=== PATIENT | male | born 1970 | race Caucasian/White ===

== ENCOUNTER 2018-06-06 09:11 | Inpatient (IN) | payer OTHER ==
[~2018-06-06] VITALS: Ht 152.4 cm; Wt 125.5 kg
[2018-06-06] MEDS: RINGERS SOLUTION,LACTATED 1,000 ML IV SCH ×2 (07:00→21:02)
[~2018-06-06 09:11] MED LIST: CeFAZolin 2 GM/DEXTROSE 50 ML IV ONE; MULT1CAP32 PO; NAPR-58 PO; OMEP20 PO; PROPOFOL 1000 MG/ISO-OSM 200 ML IV ONE; RINGERS SOLUTION,LACTATED 1,000 ML IV ONE
[2018-06-06] MEDS ORDERED: BACITRACIN 50,000 UNITS/VIAL ONE (10:04)
[2018-06-06] MEDS ORDERED: THROMBIN, BOVINE 20000 UNITS/VIAL POWDER TP ONE (10:05)
[2018-06-06] MEDS ORDERED: SODIUM CHLORIDE 0.9% 100 ML ONE (10:05)
[2018-06-06] MEDS ORDERED: RINGERS SOLUTION,LACTATED 1,000 ML IV ONE ×2 (10:05→13:30)
[2018-06-06] MEDS ORDERED: GELATIN SPONGE,ABSORBABLE 100 MM TP ONE (10:05)
[2018-06-06] MEDS ORDERED: GELATIN SPONGE,ABSORBABLE 50 MM TP ONE (10:11)
[2018-06-06] MEDS ORDERED: LIDOCAINE 0.5% 50 ML VIAL ONE (10:21)
[2018-06-06] MEDS ORDERED: KETAMINE HCL 50 MG/ML 10 ML VIAL IVP ONE (12:00)
[2018-06-06] MEDS ORDERED: EPHEDrine SULFATE 50 MG/ML VIAL IM ONE (12:00)
[2018-06-06] MEDS ORDERED: 0.9% SODIUM CHLORIDE 10 ML VIAL IVP ONE (12:00)
[2018-06-06] MEDS ORDERED: NEOSTIGMINE METHYLSULFATE 1 MG/ML 10 ML VIAL IVP ONE (12:00)
[2018-06-06] MEDS ORDERED: ROCURONIUM BROMIDE 10 MG/ML 5 ML VIAL IVP ONE (12:00)
[2018-06-06] MEDS ORDERED: ONDANSETRON HCL 4 MG/2 ML VIAL IVP ONE (12:00)
[2018-06-06] MEDS ORDERED: SUCCINYLCHOLINE CHLORIDE 20 MG/ML 10 ML VIAL IVP ONE (12:00)
[2018-06-06] MEDS ORDERED: MIDAZOLAM HCL 2 MG/2 ML VIAL IVP ONE (12:00)
[2018-06-06] MEDS ORDERED: GLYCOPYRROLATE 0.2 MG/ML VIAL IM ONE (12:00)
[2018-06-06] MEDS ORDERED: HYDROmorphone 2 MG/ML SYRINGE IVP ONE (12:00)
[2018-06-06] MEDS ORDERED: LIDOCAINE/PF 2% 5 ML VIAL INJ ONE (12:00)
[2018-06-06] MEDS ORDERED: PROPOFOL 1% 20 ML VIAL IVP ONE (12:00)
[2018-06-06] MEDS ORDERED: FentaNYL CITRATE-PF 250 MCG/5 ML VIAL IVP ONE (12:00)
[2018-06-06] MEDS ORDERED: DEXAMETHASONE SOD PHOS 4 MG/ML VIAL IVP ONE (12:00)
[2018-06-06] MEDS ORDERED: GUM MASTIC/STORAX/MSAL/ALCOHOL LIQUID 0.67 ML VIAL TP ONE (12:47)
[2018-06-06] MEDS ORDERED: BACITRACIN 28.4 GM OINTMENT TP ONE (12:49)
[2018-06-06] MEDS ORDERED: BUPIVACAINE HCL 0.5% 50 ML VIAL ONE (12:51)
[2018-06-06] MEDS ORDERED: HYDROmorphone 2 MG/ML SYRINGE IVP PRN (13:15)
[2018-06-06] MEDS ORDERED: ACETAMINOPHEN 325 MG TABLET PO PRN (13:15)
[2018-06-06] MEDS ORDERED: OxyCODONE HCL/ACETAMINOPHEN 5-325 MG TABLET PO PRN (13:15)
[2018-06-06] MEDS ORDERED: DiphenhydrAMINE HCL 50 MG/ML VIAL IVP PRN (13:15)
[2018-06-06] MEDS ORDERED: ZOLPIDEM TARTRATE 10 MG TABLET PO PRN (13:15)
[2018-06-06] MEDS: CeFAZolin 1 GM/DEXTROSE 50 ML IV SCH ×2 (13:15→21:03)
[2018-06-06 14:44] VITALS: BP 136/78
[2018-06-06 16:33] VITALS: BP 134/76
[2018-06-06] MEDS: OXYGEN THERAPY IH SCH (21:02)
[2018-06-06] MEDS: DOCUSATE SODIUM 100 MG CAPSULE PO SCH (21:03)
[2018-06-06 21:10] VITALS: BP 111/65
[2018-06-07 00:43] VITALS: BP 100/61
[2018-06-07 05:27] VITALS: BP 107/69
[2018-06-07 06:20] LABS: BASOPHILS % (AUTO) 0.1 % (0.0-2.0); EOSINOPHILS % (AUTO) 0 % (1.0-6.0); HEMATOCRIT 42.8 % (41-53); HEMOGLOBIN 14.8 g/dL (13.5-17.5); LYMPHOCYTES # (AUTO) 1.1 K/uL (1.0-4.8); LYMPHOCYTES % (AUTO) 9.6 % (22.0-44.0); MEAN CORPUSCULAR HEMOGLOBIN 30.7 pg (26.0-34.0); MEAN CORPUSCULAR HGB CONC 34.7 G/dL (31.0-37.0); MEAN CORPUSCULAR VOLUME 89 fL (80-100); MONOCYTES # (AUTO) 0.7 K/uL (0.1-1.0); NEUTROPHILS # (AUTO) 9.9 K/uL (1.8-7.7); NEUTROPHILS % (AUTO) 84.3 % (40.0-70.0); PLATELET COUNT (AUTO) 215 K/uL (150-450); RED BLOOD CELL COUNT(AUTO) 4.82 MIL/uL (4.50-5.90); RED CELL DISTRIBUTION WIDTH 13.6 % (11.5-14.5)
[2018-06-07] MEDS: OxyCODONE HCL/ACETAMINOPHEN 5-325 MG TABLET PO PRN ×2 (06:28→17:10)
[2018-06-07 06:41] LABS: ANION GAP 6 mmol/L (8-16); CALCIUM, TOTAL 8.9 mg/dL (8.8-10.5); CARBON DIOXIDE 30 mmol/L (22-29); CHLORIDE 107 mmol/L (98-107); CREATININE 0.99 mg/dL (0.60-1.30); GLOMERULAR FILTR. RATE CALC > 60 mL/min (>60); GLUCOSE,RANDOM 121 mg/dL (70-110); POTASSIUM 4.4 mmol/L (3.5-5.1); SODIUM SERUM 143 mmol/L (136-145); UREA NITROGEN, BLOOD 12 mg/dL (7-18)
[2018-06-07 07:53] VITALS: BP 115/74
[2018-06-07] MEDS: OXYGEN THERAPY IH SCH ×2 (08:00→20:00)
[2018-06-07] MEDS: DOCUSATE SODIUM 100 MG CAPSULE PO SCH ×2 (08:00→20:22)
[2018-06-07] MEDS: RINGERS SOLUTION,LACTATED 1,000 ML IV SCH ×2 (09:40→23:32)
[2018-06-07] MEDS ORDERED: HYDROmorphone 2 MG/ML SYRINGE IVP PRN (09:45)
[2018-06-07] MEDS: METOCLOPRAMIDE HCL 5 MG/ML 2 ML VIAL IVP SCH ×3 (11:24→23:32)
[2018-06-07 11:49] VITALS: BP 110/68
[2018-06-07 15:31] VITALS: BP 110/69
[2018-06-07] MEDS ORDERED: DSS100 PO (18:33)
[2018-06-07] MEDS ORDERED: PERCT PO ×2 (18:34)
[2018-06-07 19:00] VITALS: BP 106/59
[2018-06-08 00:05] VITALS: BP 105/71
[2018-06-08] MEDS: OxyCODONE HCL/ACETAMINOPHEN 5-325 MG TABLET PO PRN ×3 (02:32→12:31)
[2018-06-08 04:00] VITALS: BP 124/72
[2018-06-08] MEDS: METOCLOPRAMIDE HCL 5 MG/ML 2 ML VIAL IVP SCH (05:49)
[2018-06-08 07:25] VITALS: BP 129/77
[2018-06-08] MEDS: DOCUSATE SODIUM 100 MG CAPSULE PO SCH (08:26)
[2018-06-08 11:20] VITALS: BP 116/74
== END 2018-06-08 13:11 | disposition home or self-care (01) | DRG 460 ==
LOC: 4E 09:11 → 6N 06-07 17:20
PROVIDERS: ADMIT Neurological Surgery; ATTEND Neurological Surgery
PROC: 0SB40ZZ Excision of Lumbosacral Disc, Open Approach (ICD-10-PCS; 2018-06-06)
PROC: 0SG30A0 Fusion of Lumbosacral Joint with Interbody Fusion Device, Anterior Approach, Anterior Column, Open Approach (ICD-10-PCS; principal; 2018-06-06 11:00)
DX: M51.27 Other intervertebral disc displacement, lumbosacral region (principal); Z68.43 Body mass index [BMI] 50.0-59.9, adult; K59.00 Constipation, unspecified; E66.01 Morbid (severe) obesity due to excess calories; M40.50 Lordosis, unspecified, site unspecified; Z91.048 Other nonmedicinal substance allergy status
CPT/HCPCS: 72100; 87081; 97162; 97165; 97530; 97535; G0378; J0330; J0690; J1100; J1170; J2250; J2405; J2704; J2765; J3010; J3490; J7050; J7120